=== PATIENT | female | born 1955 | race Caucasian/White ===

== ENCOUNTER → 2020-02-11 | Outpatient (CLI) | payer BC ==
[~2020-02-11] MED LIST: ACYCLOVIR 400400 MG PO; AMITRIPTYLINE100 MG PO; BUPROPION HCL150 M1 PO; COZAAR 25 MG TA25 M1 PO; ESTRACE1 MG PO; FOLIC ACID1 MG PO; IRON18 M1 PO; METHOTREXA25 MG/1 ML SUBQ; PROZAC40 MG PO
== END ==
LOC: LAB 10:03
PROVIDERS: ATTEND Podiatrist Foot & Ankle Surgery
DX: Z01.812 Encounter for preprocedural laboratory examination (principal); Z20.828 Contact with and (suspected) exposure to other viral communicable diseases

== ENCOUNTER 2020-02-15 06:06 | Day surgery (SDC) | payer BC ==
[~2020-02-15] VITALS: Ht 172.7 cm; Wt 72.6 kg
[2020-02-15 08:11] VITALS: BP 135/76
[2020-02-15 13:30] VITALS: BP 135/76
== END 2020-02-15 15:15 | disposition home or self-care (01) ==
LOC: OR → TBA 06:06 → OR 06:06 → TBA 06:17 → OR 09:47
PROVIDERS: ATTEND Podiatrist Foot & Ankle Surgery
DX: M19.072 Primary osteoarthritis, left ankle and foot (principal); M20.42 Other hammer toe(s) (acquired), left foot; I10 Essential (primary) hypertension; D64.9 Anemia, unspecified; J45.909 Unspecified asthma, uncomplicated; Z98.890 Other specified postprocedural states; Z79.899 Other long term (current) drug therapy; Z87.442 Personal history of urinary calculi; Z90.49 Acquired absence of other specified parts of digestive tract; Z85.3 Personal history of malignant neoplasm of breast; Z90.710 Acquired absence of both cervix and uterus; Z85.828 Personal history of other malignant neoplasm of skin; Z98.41 Cataract extraction status, right eye; Z98.42 Cataract extraction status, left eye; Z88.0 Allergy status to penicillin; Z88.2 Allergy status to sulfonamides
CPT/HCPCS: 50010; 50101; 50386; 50951; 51008; 56524; 56526; 57091; 57180; 58302; 58303; 58304; 58305; 58306; 62110; 62900; 64039; 70005

== ENCOUNTER 2021-04-28 11:27 | Day surgery (SDC) | payer BC ==
[~2021-04-28] VITALS: Ht 175.3 cm; Wt 74.4 kg
[~2021-04-28 11:27] MED LIST changes: +HYDROXYZINE HCL25 M2 PO; +SINGULAIR 10 MG10 M1 PO
[2021-04-28 13:11] VITALS: BP 136/58
[2021-04-28] MEDS ORDERED: PERCOCET 7.5-31 EAC1 PO (14:50)
[2021-04-28 15:37] VITALS: BP 136/58
--- NOTE | 2021-04-29 08:43 | EKG ---
[address] [place] [address] ELECTROCARDIOGRAM REPORT Name: YAMILET MORRIS Room #: DEP [facility]#: [id number] Admission: 04/28/21 Attend Phys: John Bruno MD Discharge: 04/28/21 Date of : 59 Report #: [id number] [facility] Test Date: 2021-04-28 Test Time: 12:38:18 Pat Name: YAMILET MORRIS Department: Room: 150 6 Gender: F Project Manager/Design Manager: LEONARDA : 1955 Requested By: John Bruno Order Number: [id number] MD: Marvin Zarco Measurements Intervals [place] Rate: 73 P: 58 NV: 142 QRS: 8 QRSD: 131 T: 27 QT: 437 QTc: 482 Interpretive Statements Sinus rhythm Nonspecific ST segment abnormality No previous ECG available for comparison Electronically Signed On 04-29-2021 8:42:58 [employer] by Marvin Zarco [email or web address] <ELECTRONICALLY SIGNED> By: Marvin Zarco MD, [facility] 04/29/21 0842 1238 1238 Marvin Zarco MD, FACC /EPI
--- NOTE | 2021-04-30 06:54 | O ---
[facility] [place] [address] OPERATIVE REPORT Name: YAMILET MORRIS Room #: DEP [facility]..#: [id number] Admission: 04/28/21 Attend Phys: John Bruno MD Discharge: 04/28/21 Date of : 59 Report #: [id number] THIS REPORT FOR: cc: Betsy Hanna MD, Staci M. 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 PROCEDURE: Right foot great toe amputation through the interphalangeal joint. SURGEON: John Bruno MD ANESTHESIA: General. ESTIMATED BLOOD LOSS: Minimal. DRAINS: No drains. TOURNIQUET TIME: 30 minutes. DESCRIPTION OF PROCEDURE: The patient brought to the operating room where she was placed under general anesthesia. Once under adequate general anesthesia, her right lower extremity was prepped and draped in a sterile manner. The extremity was elevated and a tourniquet placed 300 mmHg. A fishmouth-type incision about the distal phalanx of the great toe was then made. This was dissected down through the soft tissue sharply to the bone of the distal phalanx, which was then exposed. The incision was carried through the interphalangeal joint, releasing the collateral ligaments as well as a plantar flexor tendon. The distal phalanx was then completely excised. Subsequently, the wound was irrigated copiously and closed with 3-0 nylon suture for the skin. The wound was dressed with Xeroform, 4 x 4s, and sterile soft compressive dressing was placed. Tourniquet was let down at approximately 30 minutes. Toes were pink and warm with good capillary refill. There were no complications from the procedure. The patient tolerated the procedure well and was to the recovery room without incident. <ELECTRONICALLY SIGNED> By: John Bruno MD 04/30/21 0654 1355 1432 John Bruno MD /nt
--- NOTE | 2021-04-30 22:06 | PATH ---
[facility] [address] [place] [address] PATHOLOGY RPT PROCEDURE Name: YAMILET MORRIS Room #: DEP [facility] M.R.#: [id number] Admission: 04/28/21 Date of : 59 Discharge: 04/28/21 Report #: [id number] Path Case #: [id number] [facility] Accession Number: [id number] . 01 Material submitted: . hallux - RIGHT GREAT TOE. Modifiers: right . 01 Clinical history: . AMPUTATION OF TOES RIGHT GREAT TOE AMPUTATION, HAMMER TOE . 02 Diagnosis: Right great toe, amputation: - Skin and soft tissue with dermal scarring and bone with new osteoid formation, fibrosis and granulation tissue. - Negative for active inflammation. - Proximal bone margin is viable. (ANK/db; 04/30/2021) LBQ 04/30/2021 1443 Local . 02 Electronically signed: . Scarlet Escamilla MD, Pathologist NPI- [id number] . 01 Gross description: . The specimen is received in formalin, labeled "Yamilet Morris, right great toe". Received is an amputated digit measuring 3.4 x 3.2 x 2.6 cm in greatest dimensions. The bone margin is not grossly identified. The surgical margin is inked. The nail is present and has previously been painted red. The epidermal surface is pale liu and flaky in appearance. A full-thickness longitudinal cross-section is submitted from proximal to distal aspects in cassettes A1 and A2, following decalcification. (CAA; 04/29/2021) QAC/QAC 04/29/2021 1257 Local . 02 Pathologist provided ICD-10: L90.5 . 02 CPT . 193822, 535855 Specimen Comment: A courtesy copy of this report has been sent to [phone], [phone] Specimen Comment: [id number] Specimen Comment: Report sent to / DR HERMAN Performed at: [address], [place] [id number] [place] [address] PATHOLOGY RPT PROCEDURE Name: YAMILET MORRIS Room #: DEP [facility] Krishna#: [id number] Admission: 04/28/21 Date of : 59 Discharge: 04/28/21 Report #: [id number] Path Case #: [id number] MD Claudy Phelan MD Phone: [phone] Performed at: [address] [id number] MD Lisa Connell MD Phone: [phone]
== END 2021-04-28 16:30 | disposition home or self-care (01) ==
LOC: TBA 11:27 → OR 11:27 → TBA 11:33 → OR 15:42
PROVIDERS: ATTEND Orthopaedic Surgery Foot and Ankle Surgery
DX: T84.293A Other mechanical complication of internal fixation device of bones of foot and toes, initial encounter (principal); M79.674 Pain in right toe(s); I10 Essential (primary) hypertension; J45.909 Unspecified asthma, uncomplicated; M06.9 Rheumatoid arthritis, unspecified; Z98.890 Other specified postprocedural states; Z79.899 Other long term (current) drug therapy; Z20.822 Contact with and (suspected) exposure to COVID-19; Z90.710 Acquired absence of both cervix and uterus; Z90.49 Acquired absence of other specified parts of digestive tract; Z87.442 Personal history of urinary calculi; Z85.828 Personal history of other malignant neoplasm of skin; Z85.3 Personal history of malignant neoplasm of breast; Z88.0 Allergy status to penicillin; Z88.2 Allergy status to sulfonamides; Y83.8 Other surgical procedures as the cause of abnormal reaction of the patient, or of later complication, without mention of misadventure at the time of the procedure
CPT/HCPCS: 50010; 50101; 50386; 50951; 56527; 57091; 62110; 62900; 70005